=== PATIENT | male | born 1955 | race Caucasian/White ===

== ENCOUNTER 2019-01-19 10:03 | Outpatient (CLI) | payer OTHER | END 2019-01-19 23:59 | disposition home or self-care (01) | LOC: CFH 10:03 → EDSTATUS 10:15 → CFH 23:59 | PROVIDERS: ATTEND Internal Medicine Cardiovascular Disease | DX: R91.8 Other nonspecific abnormal finding of lung field (principal) | CPT/HCPCS: 71250 ==